=== PATIENT | female | born 1975 | race African-American/Black ===

== ENCOUNTER 2016-05-06 05:26 | Day surgery (SDC) | payer BC, OTHER ==
[2016-05-03 10:58] VITALS: BMI 39.4
--- NOTE | 2016-05-06 04:36 | HP ---
History & Physical Update - History History: No Change - Physical Physical: No Change - Assessment Assessment: No Change - Plan Plan: No Change
[~2016-05-06 05:26] MED LIST: DEXTROSE 5%-LACTATED RINGERS 1,000 ML IV SCH; IBUPROFEN 800 MG/8 ML IJ IVPB PRN
[2016-05-06] MEDS ORDERED: BUPIVACAINE HCL/PF 0.5% (5MG/ML) 10 ML VIAL ONE (07:17)
[2016-05-06] MEDS ORDERED: ceFAZolin SODIUM 1 GM VIAL ONE (08:11)
[2016-05-06] MEDS ORDERED: PROPOFOL 20 ML ONE ×2 (09:13)
[2016-05-06] MEDS ORDERED: ROCURONIUM BROMIDE 50 MG/5 ML VIAL ONE ×2 (09:13→10:12)
[2016-05-06] MEDS ORDERED: MIDAZOLAM HCL 2 MG/2 ML SINGLE DOSE VIAL ONE ×2 (09:13)
[2016-05-06] MEDS ORDERED: BUPIVACAINE HCL/PF 0.5% (5MG/ML) 10 ML VIAL IJ ONE (09:35)
[2016-05-06] MEDS ORDERED: CEFAZOLIN 2 GM/D5W 50 ML IVPB SCH (10:00)
[2016-05-06] MEDS ORDERED: GLYCOPYRROLATE 0.2 MG/1 ML VIAL ONE (10:58)
[2016-05-06] MEDS ORDERED: NEOSTIGMINE METHYLSULFATE 0.5 MG/ML - 10 ML MDV ONE (10:58)
[2016-05-06] MEDS ORDERED: HYDROmorphone HCL CARPU-JECT 2 MG/1 ML DISP.SYRIN ONE ×2 (11:30→11:54)
[2016-05-06] MEDS: HYDROmorphone HCL CARPU-JECT 1 MG/1 ML DISP.SYRIN IVPUSH PRN ×8 (11:30→12:40)
[2016-05-06] MEDS ORDERED: ONDANSETRON 4 MG/2 ML VIAL IVPUSH PRN (11:34)
[2016-05-06] MEDS ORDERED: IBUPROFEN 800 MG/8 ML IJ IVPB ONE (11:53)
[2016-05-06] MEDS ORDERED: PROMETHAZINE HCL 25 MG/1 ML VIAL IVPUSH ONE (12:12)
[2016-05-06] MEDS ORDERED: HYDROmorphone HCL CARPU-JECT 1 MG/1 ML DISP.SYRIN IVPUSH PRN (13:24)
[2016-05-06 18:34] LABS: MCH 25.6 pg (25.7-33.7); MCHC 32.1 g/dl (32.0-36.0); MEAN CELL VOLUME 79.8 fl (80-96); PLATELET COUNT 180 K/MM3 (134-434); RDW 21.1 % (11.6-15.6); WHITE BLOOD COUNT 8.8 K/mm3 (4.0-10.0)
--- NOTE | 2016-05-06 18:52 | OP ---
Operative Note - Note: Operative Date: 05/06/16 Pre-Operative Diagnosis: Leiomyomatous Uterus. Menorrhagia Operation: Laparoscopic Total Hysterectomy. Bilateral salpingectomy Findings: Uterus 13-14 cm tubes & ovaries normal Post-Operative Diagnosis: Same as Pre-op Surgeon: Ivanna Agarwal Self Contained Behavior Unit Teacher: Maricarmen Frausto Anesthesia: General Estimated Blood Loss (mls): 30 Operative Report Dictated: Yes
[2016-05-06] MEDS: CEFAZOLIN 2 GM/D5W 50 ML IVPB SCH (19:45)
[2016-05-06 19:53] LABS: PLATELET ESTIMATE ADEQUATE (NORMAL)
[2016-05-06 19:54] LABS: ANISOCYTOSIS 2+; HYPOCHROMIA 2+; OVALOCYTES 1+
[2016-05-06] MEDS: LACTATED RINGERS SOLUTION 1,000 ML IV SCH (20:05)
[2016-05-06] MEDS ORDERED: HYDROmorphone HCL 2 MG TABLET PO PRN (20:18)
[2016-05-06] MEDS ORDERED: ACETAMINOPHEN 325 MG TABLET (FP) PO PRN (20:18)
[2016-05-07] MEDS: LACTATED RINGERS SOLUTION 1,000 ML IV SCH ×2 (00:22→11:48)
[2016-05-07] MEDS: CEFAZOLIN 2 GM/D5W 50 ML IVPB SCH (01:18)
--- NOTE | 2016-05-07 07:52 | PN ---
Progress Note, Physician Chief Complaint: Pt seen/evaluated and doing well. Pain controlled. Tolerating clear diet, no n/v. Voiding . Denies CP/SOB/F/C/RILEY. Passing flatus. Ambulating without difficulty. - Current Medication List Current Medications: Active Medications Acetaminophen (Tylenol -) 650 mg PO Q4H PRN PRN Reason: FEVER OR PAIN Ascorbic Acid (Vitamin C -) 500 mg PO DAILY [facility] Enoxaparin Sodium (Lovenox -) 40 mg SQ DAILY [facility] Hydromorphone HCl (Dilaudid Injection -) 0.5 mg IVPUSH [id number] PRN PRN Reason: PAIN Stop: 05/09/16 11:35 Last Admin: 05/06/16 12:40 Dose: 0.5 mg Hydromorphone HCl (Dilaudid Injection -) 0.5 mg IVPUSH [id number] PRN PRN Reason: PAIN Stop: 05/09/16 13:25 Hydromorphone HCl (Dilaudid -) 4 mg PO Q4H PRN PRN Reason: PAIN Last Admin: 05/07/16 00:26 Dose: 4 mg Lactated Ringer's (Lactated Ringers Solution) 1,000 mls @ 125 mls/hr IV ASDIR ANJALI Last Admin: 05/07/16 00:22 Dose: 125 mls/hr Ibuprofen (Caldolor Injection -) 800 mg IVPB Q6H PRN PRN Reason: FEVER Last Admin: 05/06/16 12:02 Dose: 800 mg - Objective Vital Signs: Vital Signs Temperature 99 F 05/07/16 02:16 Pulse Rate 79 05/07/16 02:16 Respiratory Rate 20 05/07/16 02:16 Blood Pressure 140/74 05/07/16 02:16 O2 Sat by Pulse Oximetry (%) 100 05/06/16 21:00 Constitutional: Yes: Well Nourished, No Distress, Calm Eyes: Yes: Conjunctiva Clear, EOM Intact HENT: Yes: Atraumatic, Normocephalic Neck: Yes: Supple, Trachea Midline Cardiovascular: Yes: Regular Rate and Rhythm Respiratory: Yes: Regular, CTA Bilaterally Gastrointestinal: Yes: Normal Bowel Sounds, Soft, Tenderness (appropriate post surgical tenderness) Wound/Incision: Yes: Clean/Dry, Well Approximated Neurological: Yes: Alert, Oriented Psychiatric: Yes: Alert, Oriented Labs: CBC, BMP 05/06/16 18:00 Problem List - Problems (1) History of robot-assisted laparoscopic hysterectomy Code(s): Z90.710 - ACQUIRED ABSENCE OF BOTH CERVIX AND UTERUS Assessment/Plan 40 y/o post op day 1 from Robotic assisted laparoscopic hysterectomy - AFVSS - H/H post op 10.8/33.7 - pt stable - regular diet, PO pain meds, ambulation - for discharge home today
[2016-05-07 08:30] LABS: MCH 25.7 pg (25.7-33.7); MCHC 32.4 g/dl (32.0-36.0); MEAN CELL VOLUME 79.5 fl (80-96); MEAN PLT VOLUME 11.1 fl (7.5-11.1); PLATELET COUNT 158 K/MM3 (134-434); RDW 21.8 % (11.6-15.6); WHITE BLOOD COUNT 8.6 K/mm3 (4.0-10.0)
[2016-05-07] MEDS ORDERED: ASCORBIC ACID 500 MG TABLET (FP) PO SCH (10:00)
[2016-05-07] MEDS ORDERED: ENOXAPARIN NA (PORCINE) 40 MG/0.4 ML DISP.SYRIN SQ SCH (10:00)
--- NOTE | 2016-05-07 11:32 | PATH ---
Surgical Pathology Report Patient Name: MISHA MARTI Med. Rec. #: [id number] /Age/Gender: 1975 (Age: 40) / F Account: [id number] Location: [facility] MED/SURG Taken: 05/06/2016 Received: 05/06/2016 Reported: 05/07/2016 Physicians: Ivanna Agarwal M.D. Specimen(s) Received A: UTERUS AND CERVIX B: LEFT FALLOPIAN TUBE C: RIGHT FALLOPIAN TUBE Clinical History Leiomyoma of uterus Final Diagnosis A. UTERUS AND CERVIX, HYSTERECTOMY: UTERUS AND CERVIX, 296 GRAMS, WITH LEIOMYOMA, ADENOMYOSIS, PROLIFERATIVE ENDOMETRIUM, AND CERVIX WITH CHRONIC INFLAMMATION. B. LEFT FALLOPIAN TUBE, SALPINGECTOMY: UNREMARKABLE FALLOPIAN TUBE. C. RIGHT FALLOPIAN TUBE, SALPINGECTOMY: UNREMARKABLE FALLOPIAN TUBE, WITH BENIGN SEROUS PARATUBAL CYST. Electronically Signed Gio Sanford M.D. Gross Description A. Received in formalin labeled "uterus and cervix," is a 296 g uterus with an attached cervix and no attached adnexa. The specimen measures 12 cm from superior to inferior, 8.8 cm from left to right and 6.5 cm from anterior to posterior. The serosa is burks-pink and smooth. The attached cervix measures 3.5 cm in length and averages 3.5 cm in diameter. The ectocervix is pink-burks, smooth and glistening. The endocervix is unremarkable. The endometrial cavity measures 5.8 cm in length and 3 cm from cornu to cornu. The endometrium is red and averages 0.1 cm in thickness. There is a 2.5 cm in greatest dimension intramural nodule present. The cut surface of the nodule is burks, rubbery and displays a whorled architecture. No areas of hemorrhage or necrosis are identified. The myometrium is burks-pink, firm, trabeculated and averages 3.2 cm in thickness. Baggage Smasher sections are submitted in 8 cassettes as follows: 1-anterior cervix; 2-posterior cervix; 6-7-mllgfmxz endomyometrium; 8-2-vitgjsjhn endomyometrium; 3-7-bdlubqwbor nodule. B. Received in formalin labeled "left fallopian tube," is a 2 cm in length fimbriated portion of fallopian tube. The outer surface is nicholas purple and smooth. Sectioning reveals an unremarkable lumen. Baggage Smasher sections are submitted in 2 cassettes as follows: 1-fimbria; 4-qlwlh-yegqfjro of fallopian tube. C. Received in formalin labeled "right fallopian tube," is a 2.7 cm in length fimbriated portion of fallopian tube. There is a 1.1 cm greatest dimension paratubal cyst attached by a stalk to the fimbria. The outer surface of the fallopian tube is nicholas purple and smooth. Sectioning reveals an unremarkable lumen. Baggage Smasher sections are submitted in 2 cassettes as follows: 1-fimbria with paratubal cyst; 2-cross sections of fallopian tube. 05/06/2016 [facility]05/06/2016
[2016-05-07 11:38] VITALS: BP 124/76; PULSE 66; TEMP 99
--- NOTE | 2016-05-08 09:37 | OP ---
DATE OF OPERATION: 05/06/2016 PREOPERATIVE DIAGNOSIS: Leiomyomatous uterus and menorrhagia. POSTOPERATIVE DIAGNOSIS: Leiomyomatous uterus and menorrhagia. OPERATION: Laparoscopic robotic total hysterectomy and bilateral salpingectomy. SURGEON: Williams Agarwal MD QUILL COLLECTOR: Maricarmen Frausto DO ANESTHESIA: General. ANESTHESIOLOGIST: . FINDINGS: Uterus about 13-14 cm in size. PROCEDURE: Patient was taken to the operating room and placed in dorsal lithotomy position, prepped and draped in the usual sterile fashion. A timeout was performed in accordance to hospital regulations. Speculum was placed in the vagina. Anterior lip of the cervix was grasped with the single-tooth tenaculum. The cervix was then dilated to accommodate the uterine manipulator. A Torres catheter was inserted into the bladder. Attention was then drawn to the umbilicus, where an 8-mm umbilical incision was made. The Veress needle was inserted into the cavity. Approximately 3-4 L of CO2 were insufflated in the cavity. The Veress needle was then removed and an 8-mm trocar was inserted. Laparoscope and camera were attached. Visualization revealed the uterus to be about 13-14 cm in size. Two trocars were placed on the left, one in the upper abdomen using 8mm tocar cannula, a 5-mm incision was made and the tocar cannula was inserted under direct visualization. Parallel to this on the left at 8 cm, an 8-mm incision was made in the avascular region and trocar was inserted under direct visualization. Two trocars on the right after incisions were made and two 8-mm incisions were then inserted parallel to each other on the right side. Patient was then placed in steep Trendelenburg, after all trocars had been placed and placement confirmed. The da Terrance robot was then side-docked to the patient's bedside. Trocars were then inserted onto the da Terrance robot were docked and instruments were then inserted under direct visualization. A vessel sealer was inserted on the right and Endo Zeenat and tenaculum were inserted on the left. A tenaculum was then used to move the uterus to the right, where the uteroovarian ligament was identified and clamped and cut using a vessel sealer. The round ligament was identified and clamped and cut using the vessel sealer and the uterine arteries were identified and clamped and cut. The vesicouterine reflection was then elevated and Endo Zeenat were then used to cut the reflection. The bladder was then bluntly dissected out of the operative field. The cardinal ligament was identified and clamped and cut down to the level of the cervix. A tenaculum was then used to move the uterus over to the left side, where the same procedure was repeated on the right side. Uteroovarian ligament was identified and clamped and cut using a vessel sealer. The round ligament was identified and clamped and cut. The uterine artery was identified and clamped and cut and the cardinal ligament was identified and clamped and cut down to the level of the cervix. After confirming the bladder had been bluntly dissected out of the operative field, Endo Zeenat were then used to cut the vagina and the cervix was then cut away from the vagina. A circumferential incision was made. The tubes were bilaterally grasped and a vessel sealer was then used to cut the tubes away from the fallopian tubes and were removed vaginally along with the uterus and cervix. Ovaries were noted to be normal. Ureters were identified and found to have peristalsis bilaterally. The 0 V-Loc suture was then passed into the abdomen from the vagina and the cuff was then closed in a continuous fashion and oversewn to the midline. A seal was confirmed, after ureters were again identified and found to have peristalsis and hemostasis was achieved. Estimated blood loss was 20 mL. The needle was then removed from the abdomen. The CO2 was removed from the abdomen. Incisions were then closed using 4-0 Biosyn suture in subcuticular fashion. The wound was washed and dressed. Patient tolerated the procedure well and was taken to the recovery room in stable condition. WILLIAMS AGARWAL M.D. [id number] MTDD
== END 2016-05-07 11:45 | disposition home or self-care (01) ==
LOC: JASUSAT 05:26 → J8W 14:11 → JASUSAT 05-07 11:45
PROVIDERS: ATTEND Obstetrics & Gynecology
PROC: 0UTC7ZZ Resection of Cervix, Via Natural or Artificial Opening (ICD-10-PCS; 2016-05-06)
PROC: 0UT2FZZ Resection of Bilateral Ovaries, Via Natural or Artificial Opening With Percutaneous Endoscopic Assistance (ICD-10-PCS; 2016-05-06)
PROC: 0UT7FZZ Resection of Bilateral Fallopian Tubes, Via Natural or Artificial Opening With Percutaneous Endoscopic Assistance (ICD-10-PCS; 2016-05-06)
PROC: 0UT9FZZ Resection of Uterus, Via Natural or Artificial Opening With Percutaneous Endoscopic Assistance (ICD-10-PCS; principal; 2016-05-06 09:00)
DX: D25.9 Leiomyoma of uterus, unspecified (principal); N92.0 Excessive and frequent menstruation with regular cycle
CPT/HCPCS: 36415; 85027; 88302-TC; 88307-TC; 94010; 94760